=== PATIENT | male | born 1935 | race Caucasian/White ===

== ENCOUNTER 2016-08-02 09:22 | Emergency (ER) | payer MEDICARE, OTHER ==
[2016-08-02 08:27] LABS: INR 1.8 INR (0.9-1.1); PROTHROMBIN TIME 21.4 SECONDS (9.0-13.6)
[2016-08-02 08:32] LABS: ANION GAP 15 mmol/L (0-20); BASO % 0.1 % (0-2); BLOOD UREA NITROGEN 29 mg/dl (6-24); CARBON DIOXIDE-VENOUS 19 mmol/L (22-32); CHLORIDE 108 mmol/l (96-110); CREATININE 1.45 mg/dl (0.60-1.30); EOS % 0.1 % (0-7); GLUCOSE 255 mg/dL (70-110); HCT-HEMATOCRIT 43.3 % (36.0-53.5); HGB-HEMOGLOBIN 14.4 gm/dl (13.5-17.0); IMMATURE GRANULOCYTES ABSOLUTE 0.01 tho/cmm (0-0.03); IMMATURE GRANULOCYTES PERCENT 0.1 % (0-0.3); LYMPH % 4.9 % (20-45); LYMPH ABSOLUTE COUNT 0.3 tho/cmm (0.8-4.5); MCH (MEAN CORPUSCULAR HGB) 27.6 pg (28.0-32.0); MCHC MEAN CORPUSCULAR HGB CONC 33.3 % (32.0-36.0); MEAN PLATELET VOLUME 10.8 cmc (9.4-12.4); MONO % 4.3 % (0-12); MONOCYTE ABSOLUTE COUNT 0.3 tho/cmm (0.0-1.2); NEUTROPHIL ABSOLUTE COUNT 6.3 tho/cmm (1.6-8.0); NEUTROPHIL-AUTOMATED 6.3 tho/cmm (1.6-8.0); NEUTROPHILS % 90.5 % (40-80); PLATELET COUNT 180 tho/cmm (150-450); RED BLOOD COUNT 5.22 mil/cmm (4.40-5.70); SODIUM 137 mmol/L (135-145); eGFR VALUE FOR BLACK 53 mL/Min
[2016-08-02 08:36] LABS: POTASSIUM 5.2 mmol/L (3.7-5.1)
[~2016-08-02 09:22] MED LIST: ACTONEL30 MG; ACTOS30 MG; AMARYL2 M1 PO; AMBIEN10 M1 PO; AMIODARONE HCL200 MG; ANUSOL-HC25 MG PR; ASPIR 8181 MG; ASPIRIN EC81 MG PO; ASPIRIN ENTERI325 MG; ATENOLOL50 MG; AZULFIDINE500 M1 PO; BENICAR20 MG; CATAPRES0.1 M1 PO; CIPRO500 MG PO; COUMADIN4 M1 PO; CYMBALTA60 MG PO; DYAZIDE 37.5-21 EACH PO; FERROUS SULFATE1 TAB PO; FLAGYL500 MG PO; JANUVIA100 M1 PO; LIPITOR20 MG; MAXZIDE 37.5 M1 EAC1 PO; METFORMIN HCL850 MG; MULTIVITAMINS1 EAC6 PO; OMEPRAZOLE20 M3 PO; PACERONE100 MG; TENORMIN50 M1 PO; TENORMIN50 MG; TRIAMTERENE HCT; ZESTRIL40 M2 PO; ZYLOPRIM100 M1 PO
[2016-08-02] MEDS ORDERED: COMPAZINE10 MG PO (10:24)
[2016-08-02] MEDS ORDERED: CARDIZEM60 M2 PO (10:24)
== END 2016-08-02 10:40 ==
LOC: EDMED 09:22
PROVIDERS: Emergency Medicine
DX: I48.0 Paroxysmal atrial fibrillation (principal); I48.92 Unspecified atrial flutter; K52.9 Noninfective gastroenteritis and colitis, unspecified
CPT/HCPCS: J0780